=== PATIENT | female | born 1970 | race American Indian/Alaskan Native ===

== ENCOUNTER 2019-01-07 15:17 | Emergency (ER) | payer OTHER ==
[2019-01-07 15:22] VITALS: BP 158/96
--- NOTE | 2019-01-07 15:27 | Event Note ---
ED Screening Note ED Screening Note: pt presents mild suprapubic pain that began two days ago +nausea no V/D last BM yesterday has itchy throat, cough no fever no urinary sx LNMP: November 22 This initial assessment/diagnostic orders/clinical plan/treatment(s) is/are subject to change based on patients health status, clinical progression and re- assessment by fellow clinical providers in the ED. Further treatment and workup at subsequent clinical providers discretion. Patient/guardian urged not to elope from the ED as their condition may be serious if not clinically assessed and managed. Initial orders include: UA, urine preg
[2019-01-07 16:27] LABS: Bacteria,Urine 1+ /HPF (Negative); Bilirubin,Urine NEG (Negative); Blood,Urine NEG (Negative); Color,Urine Yellow (Yellow); Mucus,Urine FEW /HPF; Protein,Urine <15 mg/dL mg/dL (Negative); Urobilinogen,Urine < 2.0 mg/dL (<2.0)
[2019-01-07 16:28] LABS: HCG Qualitative,Urine Negative (Negative)
[2019-01-07] MEDS ORDERED: ZOFRAN ODT PO ONE (16:47)
[2019-01-07] MEDS ORDERED: AUGMENTIN 875 MG PO ONE (16:47)
--- NOTE | 2019-01-07 17:10 | Emergency Department Report ---
ED General Adult HPI - General Chief complaint: Upper Respiratory Infection Stated complaint: FLU LIKE SYMPTOMS Time Seen by Provider: 01/07/19 15:23 Source: patient Mode of arrival: Ambulatory Limitations: No Limitations - History of Present Illness Initial comments: Patient is a 48-year-old [place] female who is presenting with cough cold congestion for the last 2-3 days. Patient states she feels very congested and also has achiness in the bilateral ears. She has a cough that is productive of clear sputum with slight blood streaks today. Patient states when she coughs her chest does hurt. Patient has some abdominal achiness as well as some urinary frequency but no dysuria. Patient denies objective fever chills nausea vomiting or diarrhea at this time. - Related Data Previous Rx's Medication Instructions Recorded Last Taken Type ALBUTEROL Inhaler (OR & NICU) 2 puff IH QID PRN #1 inhalation 01/07/19 Unknown Rx [ProAir HFA Inhaler] Amoxicillin/Potassium Clav 1 each PO BID #14 tablet 01/07/19 Unknown Rx [Augmentin 875-125 Tablet] Benzonatate [Tessalon Perles] 100 mg PO Q8HR #10 capsule 01/07/19 Unknown Rx Fluticasone [Flonase] 1 spray NS QDAY #1 bottle 01/07/19 Unknown Rx predniSONE [Deltasone] 20 mg PO QDAY #5 tab 01/07/19 Unknown Rx traMADol [Ultram] 50 mg PO Q6HR PRN #12 tablet 01/07/19 Unknown Rx ED Review of Systems ROS: Stated complaint: FLU LIKE SYMPTOMS Other details as noted in HPI Comment: All other systems reviewed and negative ED Past Medical Hx - Past Medical History Previous Medical History?: No - Surgical History Past Surgical History?: Yes Additional Surgical History: x 3 - Social History Smoking Status: Never Smoker Substance Use Type: Alcohol, Prescribed - Medications Home Medications: Home Medications Medication Instructions Recorded Confirmed Last Taken Type ALBUTEROL Inhaler (OR & NICU) 2 puff IH QID PRN #1 inhalation 01/07/19 Unknown Rx [ProAir HFA Inhaler] Amoxicillin/Potassium Clav 1 each PO BID #14 tablet 01/07/19 Unknown Rx [Augmentin 875-125 Tablet] Benzonatate [Tessalon Perles] 100 mg PO Q8HR #10 capsule 06/23/19 Unknown Rx Fluticasone [Flonase] 1 spray NS QDAY #1 bottle 01/07/19 Unknown Rx predniSONE [Deltasone] 20 mg PO QDAY #5 tab 01/07/19 Unknown Rx traMADol [Ultram] 50 mg PO Q6HR PRN #12 tablet 01/07/19 Unknown Rx ED Physical Exam - General Limitations: No Limitations General appearance: alert, in no apparent distress - Head Head exam: Present: atraumatic, normocephalic - Eye Eye exam: Present: normal appearance, PERRL, EOMI - ENT ENT exam: Present: mucous membranes moist - Neck Neck exam: Present: normal inspection - Respiratory Respiratory exam: Present: normal lung sounds bilaterally. Absent: respiratory distress, wheezes, rales, rhonchi - Cardiovascular Cardiovascular Exam: Present: regular rate, normal rhythm. Absent: systolic murmur, diastolic murmur, rubs, gallop - GI/Abdominal GI/Abdominal exam: Present: soft, normal bowel sounds. Absent: distended, tenderness, guarding, rebound - Extremities Exam Extremities exam: Present: normal inspection - Back Exam Back exam: Present: normal inspection - Neurological Exam Neurological exam: Present: alert, oriented X3 - Psychiatric Psychiatric exam: Present: normal affect, normal mood - Skin Skin exam: Present: warm, dry, intact, normal color. Absent: rash ED Course Vital Signs 01/07/19 15:18 Temperature 98.5 F Pulse Rate 86 Respiratory 18 Rate Blood Pressure 158/96 O2 Sat by Pulse 100 Oximetry ED Medical Decision Making - Medical Decision Making Patient with upper respiratory type symptoms and does have a productive cough with slight bloody tinge sputum. Patient likely acute bronchitis. Patient also has a urinary tract infection per her urinalysis. Patient started on Augmentin and will be discharged home. Critical care attestation.: If time is entered above; I have spent that time in minutes in the direct care of this critically ill patient, excluding procedure time. ED Disposition Clinical Impression: Acute bronchitis Qualifiers: Bronchitis organism: unspecified organism Qualified Code(s): J20.9 - Acute bronchitis, unspecified Acute cystitis Qualifiers: Hematuria presence: without hematuria Qualified Code(s): N30.00 - Acute cystitis without hematuria Disposition: TO HOME OR SELFCARE Is pt being admited?: No Does the pt Need Aspirin: No Condition: Stable Instructions: Acute Bronchitis (ED), Urinary Tract Infection in Women (ED) Time of Disposition: 17:10
== END 2019-01-07 17:49 | disposition home or self-care (01) ==
LOC: ED 15:17
DX: J20.9 Acute bronchitis, unspecified (principal); N30.00 Acute cystitis without hematuria
CPT/HCPCS: 81001; 81025; 87086; Q0162